=== PATIENT | female | born 1990 | race Caucasian/White ===

== ENCOUNTER → 2016-10-27 | Outpatient (CLI) | payer OTHER, MEDICAID ==
--- NOTE | 2016-10-28 02:34 | REP ---
Clinical: Anatomical evaluation. Comparison: None . Findings: Examination demonstrates a single live intrauterine in variable presentation. motion is identified by technologist. Placenta is noted posteriorly and grade zero without evidence for placenta previa or abruption. Amniotic fluid volume is normal. Cervix measures 3.4 cm in length and appears closed. No evidence for nuchal cord. Gestational age by current measurements 18 weeks 0 days with MORIAH 03/30/2017 . FHR equals 139 beats per minute. BPD 4.1 cm 18 weeks 2 days HC 14.4 cm 17 weeks 4 days AC 12.2 cm 17 weeks 6 days FL 2.6 cm 17 weeks 5 days HL 2.6 cm 18 weeks 1 day HC/AC ratio 1.18 Estimated weight 211 grams ( 42nd percentile). Anatomical assessment demonstrates normal structures including cranium, choroid plexus, cavum, cerebellum/posterior fossa, facial profile , lungs, four-chamber heart/ventricular outflow tracts, diaphragm, stomach, cord insertion/three-vessel cord, kidneys/bladder, spine, and extremities. Impression: Single live intrauterine in variable presentation. With the exception of facial features (incompletely evaluated) , anatomical assessment is complete and normal. Signed by Margarito Stiles MD 10/28/2016 02:27 A
== END ==
LOC: M SMT 13:32
PROVIDERS: ATTEND Specialist
DX: Z34.82 Encounter for supervision of other normal pregnancy, second trimester (principal)

== ENCOUNTER → 2016-11-16 | Outpatient (CLI) | payer OTHER ==
--- NOTE | 2016-11-16 17:39 | REP ---
OB ULTRASOUND: REASON FOR EXAM: Followup anatomy. PRIOR EXAMINATION: 10/27/2016 failed to optimally visualize the facial features. Multiple sonographic images of the gravid uterus show a single living intrauterine gestation in the cephalic presentation. Doppler interrogation of the heart shows a heart rate of 141 beats per minute. The placenta is posterior and not low lying. The subjective amniotic fluid volume is within normal limits. The cervix measures 3.7 cm in length and is closed. Evaluation of the facial features including the upper lip and profile showed no abnormalities. This completes the anatomical screen. BPD 5.0 cm = 21 weeks 0 days HC 18.0 cm = 20 weeks 3 days AC 15.7 cm = 20 weeks 6 days FL 3.6 cm = 21 weeks 3 days Estimated weight is 397 grams which is at the 56th percentile for a 20 week 6 day gestational age. IMPRESSION: Single living intrauterine gestation as described above with an estimated gestational age of 20 weeks 5 days via composite criteria and an estimated date of delivery of 03/31/2017 by today's exam. anatomical screen was completed as described above. Signed by Crow Jin DO 11/17/2016 11:15 A
== END ==
LOC: M SMT 13:59
PROVIDERS: ATTEND Specialist
DX: Z34.82 Encounter for supervision of other normal pregnancy, second trimester (principal)

== ENCOUNTER → 2016-12-29 | Outpatient (CLI) | payer OTHER ==
[2016-12-29 19:07] LABS: MEAN CORPUSCULAR HEMOGLOBIN 30.6 pg (27.0-33.0); MEAN CORPUSCULAR HGB CONC 32.9 g/dl (32.0-36.5); RED CELL DISTRIBUTION WIDTH 12.6 % (11.5-14.5); WHITE BLOOD COUNT 7.4 K/mm3 (4.0-10.0)
== END ==
LOC: M SMT 13:16
PROVIDERS: ATTEND Obstetrics & Gynecology
DX: Z34.82 Encounter for supervision of other normal pregnancy, second trimester (principal)

== ENCOUNTER → 2017-01-19 | Outpatient (REF) | payer OTHER ==
[2017-01-19 12:59] LABS: ALBUMIN 2.6 GM/DL (3.2-5.2); ALBUMIN/GLOBULIN RATIO 0.79 (1.00-1.93); ALKALINE PHOSPHATASE 95 U/L (45-117); ALT/SGPT 21 U/L (12-78); AST/SGOT 11 U/L (15-37); BILIRUBIN,DIRECT < 0.1 MG/DL (0.0-0.2); BILIRUBIN,TOTAL 0.2 MG/DL (0.2-1.0); TOTAL PROTEIN 5.9 GM/DL (6.4-8.2)
== END ==
LOC: M LABDRAWC 11:23 → MERGE 11:23
PROVIDERS: ATTEND Specialist
DX: O26.613 Liver and biliary tract disorders in pregnancy, third trimester (principal)

== ENCOUNTER 2017-01-23 16:51 | Outpatient (CLI) | payer OTHER ==
[~2017-01-23] VITALS: Ht 157.5 cm; Wt 65.0 kg
[2017-01-23 16:59] VITALS: BP 116/74
[2017-01-23 18:22] VITALS: BP 111/74
== END 2017-01-23 19:00 | disposition home or self-care (01) ==
LOC: M LDO 16:51
PROVIDERS: ATTEND Obstetrics & Gynecology
DX: O26.893 Other specified pregnancy related conditions, third trimester (principal); M54.5 Low back pain; Z3A.30 30 weeks gestation of pregnancy; Z79.899 Other long term (current) drug therapy

== ENCOUNTER → 2017-02-21 | Outpatient (REF) | payer OTHER ==
[~2017-02-21] MED LIST: ACET50TA PO; MOTR200T44 PO; PRENTAB9 PO
[2017-02-22 12:37] LABS: ALBUMIN 2.5 GM/DL (3.2-5.2); ALBUMIN/GLOBULIN RATIO 0.76 (1.00-1.93); ALKALINE PHOSPHATASE 141 U/L (45-117); ALT/SGPT 17 U/L (12-78); AST/SGOT 12 U/L (15-37); BILIRUBIN,DIRECT < 0.1 MG/DL (0.0-0.2); BILIRUBIN,TOTAL 0.3 MG/DL (0.2-1.0); TOTAL PROTEIN 5.8 GM/DL (6.4-8.2)
== END ==
LOC: M LABDRAWC 11:27
PROVIDERS: ATTEND Obstetrics & Gynecology
DX: Z34.83 Encounter for supervision of other normal pregnancy, third trimester (principal)

== ENCOUNTER 2017-02-24 20:37 | Inpatient (IN) | payer OTHER ==
[~2017-02-24] VITALS: Ht 160 cm; Wt 70.0 kg
[2017-02-24 21:01] VITALS: BP 122/83
[2017-02-24 21:02] VITALS: BP 122/83
[2017-02-24] MEDS ORDERED: PENICILLIN G POTASSIUM IV 5 MU in D5W MINI-BAG PLUS 100 ML IV STA (21:04)
[2017-02-24] MEDS ORDERED: BETAMETHASONE SOLUSPAN 6MG/ML INJ 5ML (J0702) IM SCH (21:15)
[2017-02-24 22:08] LABS: MEAN CORPUSCULAR HEMOGLOBIN 30.5 pg (27.0-33.0); MEAN CORPUSCULAR HGB CONC 33.9 g/dl (32.0-36.5); MEAN CORPUSCULAR VOLUME 90.1 fl (80.0-96.0); RED CELL DISTRIBUTION WIDTH 13.4 % (11.5-14.5); WHITE BLOOD COUNT 7.2 K/mm3 (4.0-10.0)
[2017-02-24 22:49] VITALS: BP 113/76
--- NOTE | 2017-02-24 23:05 | HPE ---
DATE OF ADMISSION: 02/24/2017 Dominga is a 27-year-old 1, para 0 at 35 and 2/7 weeks gestation with an estimated date of confinement (EDC) of 03/29/2017 based on last normal menstrual period and confirmed by first trimester ultrasound. She reports to labor and delivery today with report of spontaneous rupture of membranes at approximately 1900. She reports continued leakage of fluid in the onset of contractions following leakage of fluid. She denies vaginal bleeding and the fetus has been active. care initiated at [facility] in the first trimester. course complicated by a history of depression, migraines, partner with positive herpes simplex virus (HSV). The patient herself has never had an outbreak of any genital herpes. OBSTETRICAL HISTORY: Primigravida OBSTETRICAL LABORATORY: Blood type O+, antibody screen negative, rubella immune, VDRL nonreactive. Urine culture negative. Hepatitis B surface antigen negative, human immunodeficiency virus (HIV) negative. Hepatitis C antibody nonreactive. Gonorrhea and chlamydia negative. She did decline all genetic serum screening labs. Group B streptococcus (GBS) is unknown. Gestational diabetic screening 91. She underwent went labs for complaint of a rash with bile acids returning a normal result of 12.1, AST of 12, ALT 17, alkaline phosphatase 141. PAST MEDICAL HISTORY: Migraines, depression, positive human papillomavirus (HPV), childhood varicella. SURGERIES: Breast reduction in 2009. FAMILY HISTORY: Diabetes and hypertension, thyroid disease. SOCIAL HISTORY: The patient is . The is at bedside and supportive. She is a nonsmoker. Denies alcohol and drug use. Denies history of any sexually transmitted infections and denies history of abuse, physical, sexual and emotional. ALLERGIES: No known drug allergies. Current medications include Fioricet as needed for migraines and vitamin OBJECTIVE: Temperature 98, pulse 100, respirations 18, blood pressure is 122/ 83. She is alert and oriented times three. She does seem to deep breath with her contractions. heart rate is 140 with moderate variability and positive accelerations, no decelerations observed. Abdomen is gravid, cephalic presentation confirmed by bedside sonogram. Estimated weight 5-1/2 pounds. Group B streptococcus (GBS) was obtained. Sterile spec exam. Positive pooling, positive Nitrazine and positive ferning. Sterile vaginal exam 2 cm dilated, 90% effaced, minus 2 station. ASSESSMENT: Interim at 35 and 2/7 weeks gestation. heart rate category 1, premature rupture of membranes (PROM). PLAN: Admit the patient to labor and delivery. Start IV antibiotics for Group B streptococcus (GBS) prophylaxis. Betamethasone for lung maturity. Labs as ordered. clear liquid diet. The patient does desire an epidural when she is in the much more strong labor. I did review risks to being status may be admitted to the intensive care unit. The patient has had all her questions answered and I anticipate vaginal delivery. MTDD
[2017-02-25] VITALS (20 sets, daily range): BP systolic 98–130; BP diastolic 52–82
[2017-02-25] MEDS ORDERED: FENTANYL 2MCG/ML ROPIVACAINE 0.2% IN 0.9% NACL 200ML IVBAG As Ordered ONE (00:36)
[2017-02-25] MEDS ORDERED: LACTATED RINGER'S 1000 ML IV ONE (00:45)
[2017-02-25] MEDS ORDERED: LR 1,000 ML IV SCH (00:45)
[2017-02-25] MEDS ORDERED: EPIDURAL COMMENT XX SCH (01:20)
[2017-02-25] MEDS ORDERED: FENTANYL/ROPIVACAINE/NACL BAG 200 ML EPIDURAL SCH (01:20)
[2017-02-25] MEDS ORDERED: REFRIGERATOR IV KEYS XX PRN (01:20)
[2017-02-25] MEDS ORDERED: diphenhydrAMINE INJ 50MG/ML VIAL (J1200) IV PRN (01:20)
[2017-02-25] MEDS ORDERED: NALOXONE INJ 0.4 MG/1 ML VIAL (J2310) IV PRN (01:20)
[2017-02-25] MEDS ORDERED: EPIDURAL/PCA KEYS XX PRN (01:20)
[2017-02-25] MEDS: PENICILLIN G POTASSIUM IV 2.5 MU in D5W 100 ML IV SCH ×2 (02:24→06:25)
[2017-02-25] MEDS: ONDANSETRON 4MG/2ML VIAL (J2405) IV PRN ×2 (03:29→12:49)
[2017-02-25] MEDS ORDERED: OXYTOCIN 30 UNITS IN 0.9% NaCl 500ML IV BAG (J2590) As Ordered ONE (07:58)
[2017-02-25] MEDS: PRENATAL VITAMIN TAB PO SCH (09:00)
[2017-02-25] MEDS ORDERED: OXYTOCIN DRIP 30 UNITS in APPROPRIATE DILUENT 1 EA IV SCH (09:26)
[2017-02-25] MEDS ORDERED: MEASLES,MUMPS,RUBELLA VACCINE INJ (MMR-II) (90707) SC SCH (09:30)
[2017-02-25] MEDS ORDERED: RHOGAM 300 MCG (1500 IU) INJ (J2790) IM SCH (09:30)
[2017-02-25] MEDS ORDERED: DIBUCAINE 1% OINTMENT 30GM TOP PRN (09:30)
[2017-02-25] MEDS ORDERED: ANUSOL HC CREAM 30GM TOP PRN (09:30)
[2017-02-25] MEDS ORDERED: METHYLERGONOVINE MALEATE 0.2 MG TAB PO PRN (09:30)
[2017-02-25 09:32] LABS: CORD GAS HCO3 V 22.6 MEQ/L; CORD GAS O2 SAT V 24.1 %; CORD GAS PCO2 V 51.6 mmHg; CORD GAS PH V 7.26 UNITS; CORD GAS PO2 V 15.3 mmHg; CORD GAS SBC V 18.6 MEQ/L; CORD GAS TCO2 V 24.2 MEQ/L
[2017-02-25 09:34] LABS: CORD GAS ABE A -5.1; CORD GAS HCO3 A 23.6 MEQ/L; CORD GAS O2 SAT A < 15.0 %; CORD GAS PCO2 A 58.5 mmHg; CORD GAS PH A 7.223 UNITS; CORD GAS PO2 A < 10.0 mmHg; CORD GAS TCO2 A 25.4 MEQ/L
--- NOTE | 2017-02-25 09:47 | DN ---
DATE: 02/25/2017 Dominga is a 27-year-old, 1, para 0-1-0-1 now, who was admitted to labor and delivery with premature rupture of membranes. She did receive one dose of betamethasone and requested an epidural for her labor coping. She did progress to complete dilation at 0702. She pushed to a normal spontaneous vaginal delivery of a live female in occiput anterior (OA) position with restitution to left occiput transverse (LOT) position at 0847. The shoulders delivered spontaneously and the corpus immediately followed. The female was placed on the maternal abdomen crying and active. Her mouth and nares were bulb suctioned. The cord was clamped times two and cut by the father of the baby. The was taken to the warmer for evaluation by Dr. Diaz, forestry biology specialist. A spontaneous expulsion of an intact placenta with three-vessel cord was at 0855. Uterine hemostasis achieved with uterine fundal massage and IV Pitocin rapid infusion. Estimated blood loss 200 mL. Perineum and vagina inspected and noted to have a first-degree midline laceration that was repaired with #3-0 Rapide in the usual fashion. female weight 4 pounds 15 ounces, 2258 grams. Five minute was nine. The family have named their daughter, Maren Llamas. Mom is going to formula feed. At the close of delivery, lap counts, needle count and instrument counts were correct and verified.
[2017-02-25] MEDS: IBUPROFEN 800 MG TAB PO PRN (16:14)
[2017-02-25] MEDS: DOCUSATE SODIUM 100 MG CAP PO PRN (16:14)
[2017-02-25] MEDS: ACETAMINOPHEN 500 MG TAB PO PRN (19:52)
[2017-02-26] MEDS: ACETAMINOPHEN 500 MG TAB PO PRN ×3 (03:54→22:50)
[2017-02-26] MEDS: IBUPROFEN 800 MG TAB PO PRN ×3 (03:55→22:50)
[2017-02-26 06:00] VITALS: BP 106/64
[2017-02-26] MEDS: PRENATAL VITAMIN TAB PO SCH (08:22)
[2017-02-26] MEDS ORDERED: MOM 30ML SUSPENSION UDC PO PRN (17:45)
[2017-02-26 18:00] VITALS: BP 110/68
[2017-02-26] MEDS: DOCUSATE SODIUM 100 MG CAP PO PRN (22:49)
[2017-02-27 05:26] VITALS: BP 145/74
[2017-02-27] MEDS ORDERED: MOTR200T44 PO (10:45)
[2017-02-27] MEDS ORDERED: ACET50TA PO (10:45)
[2017-02-27] MEDS ORDERED: PRENTAB9 PO (10:45)
== END 2017-02-27 10:58 | disposition home or self-care (01) | DRG 560 ==
LOC: M LDO 20:37 → M LDI 20:56 → M OBS 02-25 12:09
PROVIDERS: ADMIT Advanced Practice Midwife; ATTEND Advanced Practice Midwife
PROC: 10E0XZZ Delivery of Products of Conception, External Approach (ICD-10-PCS; principal; 2017-02-25)
PROC: 0HQ9XZZ Repair Perineum Skin, External Approach (ICD-10-PCS; 2017-02-25)
DX: O42.013 Preterm premature rupture of membranes, onset of labor within 24 hours of rupture, third trimester (principal); O99.354 Diseases of the nervous system complicating childbirth; Z37.0 Single live birth; Z3A.35 35 weeks gestation of pregnancy; Z83.3 Family history of diabetes mellitus; Z82.49 Family history of ischemic heart disease and other diseases of the circulatory system; Z83.49 Family history of other endocrine, nutritional and metabolic diseases; G43.909 Migraine, unspecified, not intractable, without status migrainosus; Z79.899 Other long term (current) drug therapy; O70.0 First degree perineal laceration during delivery

== ENCOUNTER → 2018-06-15 | Outpatient (REF) | payer BC ==
[2018-06-21 14:39] LABS: HPV HYBRID CAPTURE II Positive (Negative)
== END ==
LOC: M SFHCWAGY 13:43
DX: Z12.4 Encounter for screening for malignant neoplasm of cervix (principal)
CPT/HCPCS: G0123

== ENCOUNTER → 2018-06-25 | Outpatient (REF) | payer BC | LOC: M SFHCWAGY 15:40 | DX: R87.810 Cervical high risk human papillomavirus (HPV) DNA test positive (principal) | CPT/HCPCS: 88304 ==

== ENCOUNTER → 2019-03-07 | Outpatient (CLI) | payer BC ==
[~2019-03-07] MED LIST changes: -ACET50TA PO; +MAPA500T2 PO
--- NOTE | 2019-03-07 11:01 | REP ---
MRI brain without contrast: History: Migraines . Comparison study: Comparison MRI study April 16, 2007. Technique: Axial and sagittal imaging planes are utilized for T1 and T2-weighted scans. Sequences include spin-echo, fast spin echo, FLAIR, and diffusion weighted sequences. MRI findings: No bony calvarial lesion is seen. Craniocervical junction and upper cervical cord are normal in appearance. There is no MR evidence of significant paranasal sinus disease. No intraorbital abnormality is seen. The lateral, third, and fourth ventricles are normal in size and position. Gruber-white differentiation pattern is intact above and below the tentorium. There is no evidence of intracranial hemorrhage. No mass, infarction, extra-axial fluid collection or midline shift is seen. No abnormal white matter lesion is seen. Impression: Negative noncontrast brain MRI study. Electronically Signed by Will Lr MD 03/07/2019 10:53 A
== END ==
LOC: M RAD 10:01
PROVIDERS: ATTEND Family Medicine
DX: G43.909 Migraine, unspecified, not intractable, without status migrainosus (principal)

== ENCOUNTER → 2019-07-16 | Outpatient (REF) | payer BC ==
[2019-07-22 14:19] LABS: HPV HYBRID CAPTURE II Positive (Negative)
== END ==
LOC: M SFHCWAGY 16:11
PROVIDERS: ATTEND Nurse Practitioner Women's Health
DX: Z12.4 Encounter for screening for malignant neoplasm of cervix (principal); R87.810 Cervical high risk human papillomavirus (HPV) DNA test positive
CPT/HCPCS: 87624; G0123

== ENCOUNTER → 2020-02-17 | Outpatient (REF) | payer BC ==
[2020-02-17 13:05] LABS: EOS # 0.1 10^3/uL (0.0-0.5); EOS % 2.8 % (0.0-3.0); HEMATOCRIT 36.9 % (36.0-47.0); HEMOGLOBIN 11.9 g/dl (12.0-15.5); LYMPH # 1.7 10^3/uL (1.5-5.0); LYMPH % 44.4 % (24.0-44.0); MEAN CORPUSCULAR HEMOGLOBIN 29.2 pg (27.0-33.0); MEAN CORPUSCULAR HGB CONC 32.2 g/dl (32.0-36.5); MEAN CORPUSCULAR VOLUME 90.4 fl (80.0-96.0); MONO # 0.3 10^3/uL (0.0-0.8); MONO % 8.7 % (0.0-5.0); NEUTROPHILS # 1.7 10^3/uL (1.5-8.5); NEUTROPHILS % 42.8 % (36.0-66.0); PLATELET COUNT, AUTOMATED 200 10^3/uL (150-450); RED BLOOD COUNT 4.08 10^6/uL (4.00-5.40); WHITE BLOOD COUNT 3.9 10^3/uL (4.0-10.0)
[2020-02-17 13:27] LABS: ERYTHROCYTE SEDIMENTATION RATE 4 mm/hr (0-20)
[2020-02-17 14:11] LABS: ALT/SGPT 27 U/L (12-78); BILIRUBIN,TOTAL 0.2 MG/DL (0.2-1.0); BLOOD UREA NITROGEN 11 MG/DL (7-18); C REACTIVE PROTEIN QUANTITATIV < 0.30 MG/DL (0.00-0.30); CALCIUM LEVEL 8.9 MG/DL (8.5-10.1); CARBON DIOXIDE LEVEL 25 MEQ/L (21-32); CHLORIDE LEVEL 109 MEQ/L (98-107); CREATININE FOR GFR 0.79 MG/DL (0.55-1.30); FREE T4 0.69 NG/DL (0.76-1.46); GLOMERULAR FILTRATION RATE > 60.0 (>60); GLUCOSE, FASTING 79 MG/DL (70-100); IMMUNOGLOBULIN G 1040 MG/DL (681-1648); POTASSIUM SERUM 4.9 MEQ/L (3.5-5.1); SODIUM LEVEL 140 MEQ/L (136-145); TOTAL PROTEIN 7.1 GM/DL (6.4-8.2)
[2020-02-17 14:21] LABS: IMMUNOGLOBULIN E < 3.6 IU/ML (<100)
[2020-02-18 23:07] LABS: EBV AB TO NUCLEAR ANTIGEN >600.0 U/mL (0.0-17.9); EBV VIRAL CAPSID AG IgG >600.0 U/mL (0.0-17.9); EBV VIRAL CAPSID AG IgM <36.0 U/mL (0.0-35.9); IgG SERUM (part of Subclasses) 1068 mg/dL (586-1602); IgG Subclass 1 660 mg/dL (248-810); IgG Subclass 2 279 mg/dL (130-555); IgG Subclass 3 36 mg/dL (15-102); IgG Subclass 4 27 mg/dL (2-96)
== END ==
LOC: M SFHCPLAZ 10:18
PROVIDERS: ATTEND Internal Medicine Infectious Disease
DX: J32.9 Chronic sinusitis, unspecified (principal); R59.1 Generalized enlarged lymph nodes; F41.1 Generalized anxiety disorder

== ENCOUNTER → 2020-02-28 | Outpatient (REF) | payer BC | LOC: M SFHCPLAZ 11:04 | PROVIDERS: ATTEND Internal Medicine Infectious Disease | DX: L02.92 Furuncle, unspecified (principal) ==

== ENCOUNTER → 2020-03-02 | Outpatient (REF) | payer BC | LOC: M SFHCPLAZ 16:40 | PROVIDERS: ATTEND Internal Medicine Infectious Disease | DX: L02.222 Furuncle of back [any part, except buttock and flank] (principal) ==

== ENCOUNTER → 2020-04-20 | Outpatient (REF) | payer BC ==
[2020-06-14 12:59] LABS: HEPATITIS C VIRUS ABY INDEX 0.2 INDEX (<0.8); HIV 1&2 SCREEN CENTAUR NEGATIVE (NEGATIVE)
[2020-06-14 14:20] LABS: BASO % 0.3 % (0.0-1.0); EOS % 0.5 % (0.0-3.0); HEMATOCRIT 39.1 % (36.0-47.0); HEMOGLOBIN 12.7 g/dl (12.0-15.5); LYMPH # 2.2 10^3/uL (1.5-5.0); LYMPH % 27.4 % (24.0-44.0); MEAN CORPUSCULAR HEMOGLOBIN 30.5 pg (27.0-33.0); MEAN CORPUSCULAR HGB CONC 32.5 g/dl (32.0-36.5); MONO # 0.6 10^3/uL (0.0-0.8); MONO % 7.9 % (0.0-5.0); NEUTROPHILS % 63.6 % (36.0-66.0); PLATELET COUNT, AUTOMATED 195 10^3/uL (150-450); RED BLOOD COUNT 4.16 10^6/uL (4.00-5.40); WHITE BLOOD COUNT 7.9 10^3/uL (4.0-10.0)
[2020-06-23 11:41] LABS: CHLAMYDIA DNA AMPLIFICATION NEGATIVE (NEGATIVE); GC DNA AMPLIFICATION NEGATIVE (NEGATIVE)
== END ==
LOC: M SFHCWAGY 11:42
PROVIDERS: ATTEND Advanced Practice Midwife
DX: Z34.91 Encounter for supervision of normal pregnancy, unspecified, first trimester (principal)

== ENCOUNTER → 2020-05-19 | Outpatient (CLI) | payer BC | LOC: M PLALAB 15:49 | PROVIDERS: ATTEND Specialist | DX: Z13.79 Encounter for other screening for genetic and chromosomal anomalies (principal) ==

== ENCOUNTER → 2020-08-18 | Outpatient (CLI) | payer BC ==
[2020-08-18 15:01] LABS: HEMATOCRIT 35.6 % (36.0-47.0); HEMOGLOBIN 11.8 g/dl (12.0-15.5); MEAN CORPUSCULAR HEMOGLOBIN 31.8 pg (27.0-33.0); MEAN CORPUSCULAR HGB CONC 33.1 g/dl (32.0-36.5); PLATELET COUNT, AUTOMATED 147 10^3/uL (150-450); RED BLOOD COUNT 3.71 10^6/uL (4.00-5.40)
== END ==
LOC: M LAB 12:28
PROVIDERS: ATTEND Obstetrics & Gynecology
DX: Z34.92 Encounter for supervision of normal pregnancy, unspecified, second trimester (principal); Z3A.25 25 weeks gestation of pregnancy

== ENCOUNTER → 2020-08-28 | Outpatient (REF) | payer BC ==
[2020-08-28 19:22] LABS: APPEARANCE, URINE HAZY (CLEAR); BACTERIA, URINE AUTO NEGATIVE (NEGATIVE); BILIRUBIN, URINE AUTO NEGATIVE (NEGATIVE); BLOOD, URINE BLOOD NEGATIVE (NEGATIVE); COLOR, URINE YELLOW (YELLOW); GLUCOSE, URINE (UA) AUTO NEGATIVE (NEGATIVE); KETONE, URINE AUTO NEGATIVE (NEGATIVE); LEUKOCYTE ESTERASE, URINE AUTO NEGATIVE (NEGATIVE); MUCUS, URINE SMALL (NEGATIVE); NITRITE, URINE AUTO NEGATIVE (NEGATIVE); PROTEIN, URINE AUTO NEGATIVE (NEGATIVE); RBC, URINE AUTO 0 /HPF (0-3); SPECIFIC GRAVITY URINE AUTO 1.015 (1.002-1.035); SQUAMOUS EPITHELIAL CELL UR AU 1 /HPF (0-6); UROBILINOGEN, URINE AUTO 0.2 mg/dL (0.0-2.0); WBC, URINE AUTO 0 /HPF (0-3)
== END ==
LOC: M SFHCWAGY 18:04
PROVIDERS: ATTEND Advanced Practice Midwife
DX: Z3A.27 27 weeks gestation of pregnancy (principal)

== ENCOUNTER → 2020-10-20 | Outpatient (REF) | payer BC | LOC: M PLALAB 17:07 | PROVIDERS: ATTEND Obstetrics & Gynecology | DX: Z3A.35 35 weeks gestation of pregnancy (principal) ==

== ENCOUNTER → 2020-10-21 | Outpatient (REF) | payer BC ==
[2020-10-21 17:19] LABS: HEMATOCRIT 36.6 % (36.0-47.0); MEAN CORPUSCULAR HEMOGLOBIN 32.2 pg (27.0-33.0); MEAN CORPUSCULAR HGB CONC 32.8 g/dl (32.0-36.5); MEAN CORPUSCULAR VOLUME 98.1 fl (80.0-96.0); PLATELET COUNT, AUTOMATED 129 10^3/uL (150-450); RED BLOOD COUNT 3.73 10^6/uL (4.00-5.40); WHITE BLOOD COUNT 7.1 10^3/uL (4.0-10.0)
== END ==
LOC: M PLALAB 14:35
PROVIDERS: ATTEND Advanced Practice Midwife
DX: O09.893 Supervision of other high risk pregnancies, third trimester (principal)

== ENCOUNTER → 2020-10-21 | Outpatient (REF) | payer BC | LOC: M SFHCWAGY 17:30 | PROVIDERS: ATTEND Obstetrics & Gynecology | DX: Z3A.35 35 weeks gestation of pregnancy (principal) ==

== ENCOUNTER 2020-11-19 14:56 | Inpatient (IN) | payer BC ==
[~2020-11-19] VITALS: Ht 157.5 cm; Wt 80.0 kg
[2020-11-19 15:19] VITALS: BP 137/88
[2020-11-19] MEDS ORDERED: BUTA1CAP PO (15:24)
[2020-11-19] MEDS ORDERED: PROZ20CA11 PO (15:24)
[2020-11-19] MEDS ORDERED: RIBO400T PO (15:24)
[2020-11-19] MEDS ORDERED: MAGN1CAP PO (15:24)
[2020-11-19] MEDS ORDERED: TRAZ-252 PO (15:24)
--- NOTE | 2020-11-19 16:25 | HPEPDOC ---
Obstetrical History & Physical General Date of Admission Nov 19, 2020 at 14:56 History of Present Illness 30 yo at 39 1/7 weeks by LMP (EDC=11/25/2020) c/w 18 week ultraosund presents for induction of labor. Occasional contractions. good movement. Information Provided By: Patient Care Care: Good Care Dating Final EDC: Nov 25, 2020 Final EDC by: LMP, 2nd trimester (US) Antepartum Course Diagnos(e)s none Past Medical History Past Obstetrical History : Past Obstetrical History: Multigravida Past Medical History Medical History OB Hx: 2016 35 2/7 week labor Medical Hx: HSV exposure, no active outbreaks surgical hx: breast reduction Social History Marital Status: Family situation: Spouse/partner home Psychosocial History: No pertinent psych hx * Smoker: non-smoker Allergies Coded Allergies: Kiwi (Verified Allergy, Intermediate, tingling, hives , 11/19/20) amoxicillin (Verified Adverse Reaction, Mild, stomach pain, 11/19/20) clavulanic acid (Verified Adverse Reaction, Mild, stomach pain, 11/19/20) Medications Scheduled Fluoxetine HCl (Prozac) 20 Mg Capsule, 20 MG PO DAILY Magnesium Oxide (Magnesium) 500 Mg Capsule, 1 CAP PO DAILY for constipation No.137/Iron/Folic Acd ( Vitamin Tablet) 1 Tab Tab, 1 TAB PO DAILY Riboflavin (Vitamin B2) (Riboflavin) 400 Mg Tablet, 1 TAB PO DAILY Trazodone HCl (Trazodone HCl) 50 Mg Tablet, 35 MG PO QPM Scheduled PRN Butalb/Acetaminophen/Caffeine (Dwjqdy-Allnbeqg-Ouoq 50-300-40) 1 Each Capsule, 1 CAP PO PRN PRN for MIGRAINE Physical Examination Physical Examination GENERAL: Alert and oriented times three. BREAST: . ABDOMEN: Gravid and non-tender to touch. FETUS: Is vertex (VTX) by sterile vaginal examination (SVE), fetus is vertex (VTX) by Humza. HEART RATE: Regular rate and rhythm. LUNGS: Clear to auscultation (CTA). EXTREMITIES: No edema. No clonus. Deep tendon reflexes (DTRs) + . Vital Signs/I&O Vital Signs Date Time Temp Pulse Resp B/P (MAP) Pulse Ox O2 Delivery O2 Flow Rate FiO2 11/19/20 15:19 97.6 97 18 137/88 (104) Laboratory Data 24[facility]S Laboratory Tests 2 11/19/20 15:17: Serology Scanned Report Hepatitis B Testing Pertinent Laboratoy Data Blood Type: A+ Group B Streptococcus: Negative Steroid Therapy Steroid Therapy: No Vaginal Examination Dilation: 2cm Effacement: 80% Station: -2 Cervical Consistency: Soft Cervical Position: Middle Presentation: Cephalic presentation Assessment Variability: Moderate Accelerations: Positive Decelerations: None Tocometer Contractions: Yes Frequency: irregular Assessment/Plan Assessment Pt is a 30-year-old (G)2 para (P)1 at + weeks by LMP c/w 2nd trimester ultrasound presents to Labor and Delivery for induction. Plan Admit and orient. Display Maker and consent. Group B Streptococcus (GBS) negative. Labs and intravenous (IV) per unit protocol. Anticipate normal spontaneous delivery (). C-S as appropriate. JUSTIN JOSÉ MD Nov 19, 2020 16:25
[2020-11-19 16:43] VITALS: BP 121/71
[2020-11-19] MEDS: miSOPROStol 50MCG 1/2 TABLET SL SCH ×2 (16:43→20:55)
[2020-11-19 17:23] LABS: HEMATOCRIT 35.7 % (36.0-47.0); HEMOGLOBIN 11.9 g/dl (12.0-15.5); MEAN CORPUSCULAR HEMOGLOBIN 32.3 pg (27.0-33.0); MEAN CORPUSCULAR HGB CONC 33.3 g/dl (32.0-36.5); PLATELET COUNT, AUTOMATED 141 10^3/uL (150-450); RED BLOOD COUNT 3.68 10^6/uL (4.00-5.40); WHITE BLOOD COUNT 6.3 10^3/uL (4.0-10.0)
[2020-11-19 18:12] VITALS: BP 114/68
[2020-11-19 18:29] VITALS: BP 110/62
[2020-11-19 19:41] VITALS: BP 113/77
[2020-11-19 20:48] VITALS: BP 110/71
[2020-11-19] MEDS ORDERED: ANUSOL HC CREAM 30GM TOP SCH (21:00)
[2020-11-20] VITALS (23 sets, daily range): BP systolic 103–158; BP diastolic 50–94
[2020-11-20] MEDS ORDERED: FENTANYL 2MCG/ML ROPIVACAINE 0.2% IN 0.9% NACL 100ML IVBAG As Ordered ONE (00:42)
[2020-11-20] MEDS ORDERED: diphenhydrAMINE 50MG/ML VIAL (J1200) IV PRN (01:14)
[2020-11-20] MEDS ORDERED: REFRIGERATOR IV KEYS XX PRN (01:14)
[2020-11-20] MEDS ORDERED: EPIDURAL/PCA KEYS XX PRN (01:14)
[2020-11-20] MEDS ORDERED: NALOXONE INJ 0.4MG/1ML VIAL (J2310 PER 1MG) IV PRN (01:14)
[2020-11-20] MEDS ORDERED: ePHEDrine SULFATE 25 MG/5 ML(5MG/ML) SYRINGE IV PRN (01:14)
[2020-11-20] MEDS ORDERED: EPIDURAL COMMENT XX SCH (01:14)
[2020-11-20] MEDS ORDERED: LACTATED RINGER'S 1000 ML IV PRN (01:14)
[2020-11-20] MEDS ORDERED: ONDANSETRON 4MG/2ML VIAL IV PRN ×2 (01:14→02:55)
[2020-11-20] MEDS ORDERED: FENTANYL/ROPIVACAINE/NACL BAG 100 ML EPIDURAL SCH (01:14)
[2020-11-20] MEDS ORDERED: OXYTOCIN 30 UNITS IN 0.9% NaCl 500ML IV BAG (J2590) As Ordered ONE (02:27)
[2020-11-20] MEDS ORDERED: ACETAMINOPHEN TAB 650MG DOSE (2X325MG) PO PRN (02:55)
[2020-11-20] MEDS ORDERED: OXYTOCIN DRIP 30 UNITS in IV 1 EA IV ONE (02:55)
[2020-11-20] MEDS ORDERED: IBUPROFEN 600MG TAB PO PRN (02:55)
[2020-11-20] MEDS ORDERED: DIBUCAINE 1% OINTMENT 30GM TOP PRN (02:55)
[2020-11-20] MEDS ORDERED: RHOGAM 300 MCG (1500 IU) INJ (J2790) IM SCH (02:55)
[2020-11-20] MEDS ORDERED: MEASLES,MUMPS,RUBELLA VACCINE INJ (MMR-II) (90707) SC SCH (02:55)
[2020-11-20] MEDS ORDERED: METHYLERGONOVINE MALEATE 0.2 MG TAB PO PRN (02:55)
[2020-11-20] MEDS ORDERED: DOCUSATE SODIUM 100MG CAPSULE PO PRN (02:55)
--- NOTE | 2020-11-20 03:04 | DNPDOC ---
[facility] Delivery Note Delivery Note DATE OF DELIVERY: November 20, 2020 PREDELIVERY DIAGNOSIS: 39-1/7 weeks' gestation and labor. POST DELIVERY DIAGNOSIS: Delivered. PROCEDURE: Spontaneous vaginal delivery. FRONT OF HOUSE MANAGER: Dr. Justin José MD ANESTHESIA: epidural. ESTIMATED BLOOD LOSS: 200 mL. FINDINGS: 7 pound 11 ounce female , Score 7/7, nuchal cord times 1. DELIVERY SUMMARY: Patient is a 30-year-old 2 now para 2 who was admitted to labor and delivery for induction. She received 2 doses of Misoprostol. She had SROM, and progressed to become fully dilated. After a 15 minute second stage of labor she had spontaneous vaginal delivery of a female infant, score 7, 7. Nuchal cord x 1 was reduced manually. Shoulders delivered with ease. Placenta delivered spontaneously and appeared intact. Pitocin was administered intravenously after delivery of the placenta. No lacerations present. Sponge counts correct. JUSTIN JOSÉ MD Nov 20, 2020 03:04
[2020-11-20] MEDS: IBUPROFEN 800 MG TAB PO PRN ×3 (06:30→23:43)
[2020-11-20] MEDS: PRENATAL VITAMINS CHEWABLE TABLET PO SCH (08:58)
[2020-11-20] MEDS: ACETAMINOPHEN 500 MG TAB PO PRN ×4 (08:58→22:39)
[2020-11-21 06:00] VITALS: BP 120/60
[2020-11-21] MEDS: PRENATAL VITAMINS CHEWABLE TABLET PO SCH ×3 (08:32→08:57)
[2020-11-21] MEDS: IBUPROFEN 800 MG TAB PO PRN (19:53)
[2020-11-22 06:00] VITALS: BP 104/62
[2020-11-22 08:30] VITALS: BP 104/62
[2020-11-22] MEDS: PRENATAL VITAMINS CHEWABLE TABLET PO SCH (09:00)
[2020-11-22] MEDS: IBUPROFEN 800 MG TAB PO PRN ×2 (10:23→18:51)
[2020-11-22 18:00] VITALS: BP 128/82
== END 2020-11-22 20:20 | disposition home or self-care (01) | DRG 560 ==
LOC: M LDI 14:56 → M OBS 11-20 06:14
PROVIDERS: ADMIT Specialist; ATTEND Specialist
PROC: 10E0XZZ Delivery of Products of Conception, External Approach (ICD-10-PCS; principal; 2020-11-20)
PROC: 3E0P7GC Introduction of Other Therapeutic Substance into Female Reproductive, Via Natural or Artificial Opening (ICD-10-PCS; 2020-11-20)
DX: O69.81X0 Labor and delivery complicated by cord around neck, without compression, not applicable or unspecified (principal); Z3A.39 39 weeks gestation of pregnancy; Z37.0 Single live birth

== ENCOUNTER → 2021-04-28 | Outpatient (REF) | payer BC ==
[~2021-04-28] MED LIST changes: +BUTA1CAP PO; +MAGN1CAP PO; +PROZ20CA11 PO; +RIBO400T PO; +TRAZ-252 PO
== END ==
LOC: M SFHCWAGY 17:20
PROVIDERS: ATTEND Specialist
DX: Z01.419 Encounter for gynecological examination (general) (routine) without abnormal findings (principal); R87.612 Low grade squamous intraepithelial lesion on cytologic smear of cervix (LGSIL)

== ENCOUNTER → 2021-06-10 | Outpatient (REF) | payer BC | LOC: M SFHCWAGY 19:03 | PROVIDERS: ATTEND Specialist | DX: R89.6 Abnormal cytological findings in specimens from other organs, systems and tissues (principal) ==

== ENCOUNTER → 2021-07-27 | Outpatient (REF) | payer BC | LOC: M SFHCWAGY 17:18 | PROVIDERS: ATTEND Specialist | DX: N72 Inflammatory disease of cervix uteri (principal); R87.612 Low grade squamous intraepithelial lesion on cytologic smear of cervix (LGSIL) ==

== ENCOUNTER → 2021-09-28 | Outpatient (CLI) | payer BC | LOC: M WHC 14:20 | PROVIDERS: ATTEND Specialist | DX: R10.2 Pelvic and perineal pain (principal) ==

== ENCOUNTER → 2022-03-14 | Outpatient (REF) | payer BC | LOC: M PLALAB 09:47 | PROVIDERS: ATTEND Specialist | DX: N87.9 Dysplasia of cervix uteri, unspecified (principal); Z12.4 Encounter for screening for malignant neoplasm of cervix; R87.69 Abnormal cytological findings in specimens from other female genital organs | CPT/HCPCS: 87624; G0123 ==